=== PATIENT | female | born 1960 | race Caucasian/White ===

== ENCOUNTER 2016-05-28 11:03 | Inpatient (IN) | payer OTHER ==
[~2016-05-28] VITALS: Ht 170.2 cm; Wt 68.5 kg
[~2016-05-28 11:03] MED LIST: ASCORBIC ACID100 MG PO; CO Q-10100 MG PO; GLUCOSAMINE 1,1 EAC1 PO; MELATONIN1 M1 SL; MILK THISTLE500 MG PO; MOUTHSPRAY10 ML MM; OMEGA 3-6-9 CO1 EACH PO; OMEPRAZOLE40 M1 PO; ROXICODONE5 MG PO; SYNTHROID50 MCG PO; TRAMADOL HCL50 MG PO; VALTREX50 MG/ML PO; ZETIA10 MG PO; [UNRECOGNIZED DRUG - OTHER]; [UNRECOGNIZED DRUG - OTHER] PO
[2016-05-28 13:34] LABS: HEMATOCRIT 36.6 % (36.0-46.0); MCH 35.7 PG (29.0-34.0); MCHC 35.5 G/DL (30.0-36.0); MCV 100.5 FL (83-99); MEAN PLAT.VOLUME 10.4 uM^3 (9.5-12.4); PLATELET COUNT 147 K/uL (156-360); RBC DIS.WIDTH-CV 15.8 % (11.8-14.6); RBC DIS.WIDTH-SD 58.3 % (39-53); RED BLOOD COUNT 3.64 M/uL (3.80-5.20); WHITE BLOOD COUNT 11.4 K/uL (4.1-10.2)
[2016-05-28 13:45] LABS: CHLORIDE 91 mEq/L (99-109); POTASSIUM 3.5 mEq/L (3.7-5.4); SODIUM 130 mEq/L (136-147)
[2016-05-28 13:47] LABS: GLUCOSE 104 mg/dL (70-99)
[2016-05-28 13:49] LABS: ANION GAP 13 MEQ/L (2-14); TOTAL BILIRUBIN 18.5 mg/dL (0.0-1.0)
[2016-05-28 13:51] LABS: ALKALINE PHOSPHATASE 317 IU/L (3-129); GFR ESTIMATE (CALCULATED) > 59 mL/min/
[2016-05-28 13:52] LABS: UREA NITROGEN (BUN) 6 mg/dL (9-23)
[2016-05-28 13:54] LABS: LIPASE 42 U/L (1.0-51.0)
[2016-05-28 13:55] LABS: INTER. NORMALIZED RATIO 1.6; PROTHROMBIN TIME 16.2 (9.2-11.2); PTT 36.9 (25-32)
[2016-05-28 14:25] LABS: ADD MIUA? YES; BILIRUBIN MODERATE; BLOOD SMALL; COLOR AMBER ((YELLOW)); GLUCOSE (STRIP) 50; KETONES NEGATIVE; LEUKOCYTES NEGATIVE; NITRITE NEGATIVE; PROTEIN (STRIP) 30; SPECIFIC GRAVITY 1.024 (1.000-1.030)
[2016-05-28 14:44] LABS: ICTOTEST POSITIVE
[2016-05-28 15:10] LABS: BACTERIA 2+ /HPF; EPITHELIAL CELLS 1+ /HPF; HYALINE CASTS 20-30 /LPF; MUCUS 4+ /LPF; UCUL ADDED? YES; UNCLASSIFIED CRYSTALS 4+ /HPF; WHITE BLOOD CELLS CLUMP MOD /HPF (0-5)
[2016-05-28] MEDS ORDERED: CYMBALTA30 MG PO (17:07)
[2016-05-28] MEDS ORDERED: LYRICA150 MG PO (17:07)
[2016-05-28] MEDS ORDERED: DICYCLOMINE HCL10 MG PO (17:08)
[2016-05-28] MEDS ORDERED: ASCORBIC ACID500 M3 PO (17:08)
[2016-05-28] MEDS ORDERED: MELATONIN10 M4 SL (17:08)
[2016-05-28 19:00] VITALS: BP 166/77
[2016-05-28 21:20] LABS: DIRECT BILIRUBIN 11.8 mg/dL (0.0-0.3)
[2016-05-28 22:01] LABS: MAGNESIUM 1.6 mg/dL (1.3-2.7)
[2016-05-28 22:04] VITALS: BP 110/70
[2016-05-29] VITALS: BP 167/84
[2016-05-29 04:00] VITALS: BP 127/88
[2016-05-29 06:42] LABS: BASOPHIL COUNT 0.1 K/uL (0-0.1); EOSINOPHIL (%) 1.5 % (0-5); EOSINOPHIL COUNT 0.1 K/uL (0-0.3); HEMATOCRIT 31.3 % (36.0-46.0); IMMATURE GRANULOCYTE (%) 0.6 % (0.0-0.7); IMMATURE GRANULOCYTE COUNT 0.1 K/uL; INSTRUMENT ABS NEUTROPHIL CT 5.5 K/uL; LYMPHOCYTE COUNT 1.4 K/uL (1.0-2.8); MCH 35.8 PG (29.0-34.0); MCHC 35.5 G/DL (30.0-36.0); MEAN PLAT.VOLUME 10.2 uM^3 (9.5-12.4); MONOCYTE (%) 11.7 % (3-12); MONOCYTE COUNT 0.9 K/uL (0-0.8); NEUTROPHIL (%) 68.2 % (45-76); NEUTROPHIL COUNT 5.5 K/uL (1.8-6.4); PLATELET COUNT 118 K/uL (156-360); RBC DIS.WIDTH-CV 15.9 % (11.8-14.6)
[2016-05-29 07:00] VITALS: BP 103/69
[2016-05-29 07:00] LABS: ALKALINE PHOSPHATASE 242 IU/L (3-129); ANION GAP 9 MEQ/L (2-14); CHLORIDE 95 MEQ/L (99-109); GFR ESTIMATE (CALCULATED) > 59 mL/min/; GLUCOSE 94 mg/dL (70-99); POTASSIUM 2.8 MEQ/L (3.7-5.4); SAMPLE HEMOLYSIS CHECK 0; SAMPLE ICTERIC CHECK 3; SAMPLE LIPEMIA CHECK 0; SODIUM 130 MEQ/L (136-147); TOTAL BILIRUBIN 16.6 MG/DL (0.0-1.0); UREA NITROGEN (BUN) 5 mg/dL (9-23)
[2016-05-29 10:06] LABS: TYPE OF FLUID PARACENTESIS
[2016-05-29 10:53] LABS: BODY FLUID EOSINOPHILS 1 % (0-25); BODY FLUID RBC'S < 1000 /MM^3 (0-100); BODY FLUID WBC'S 82 /MM^3 (0-500); MONONUCLEAR WBC'S 89 %; POLYNUCLEAR WBC'S 10 % (0-25)
[2016-05-29 11:01] LABS: BODY FLUID PROTEIN 0.6 G/DL
[2016-05-29 11:16] LABS: COMMENT MANY MACROPHAGES AND
[2016-05-29 15:30] VITALS: BP 91/56
[2016-05-29] MEDS ORDERED: SPIRONOLACTONE50 MG PO (17:36)
[2016-05-29 22:43] VITALS: BP 94/58
[2016-05-30 08:20] VITALS: BP 98/58
[2016-05-30 09:55] LABS: BASOPHIL COUNT 0.1 K/uL (0-0.1); EOSINOPHIL COUNT 0.1 K/uL (0-0.3); IMMATURE GRANULOCYTE (%) 0.5 % (0.0-0.7); IMMATURE GRANULOCYTE COUNT 0.1 K/uL; INSTRUMENT ABS NEUTROPHIL CT 6.5 K/uL; LYMPHOCYTE COUNT 1.6 K/uL (1.0-2.8); MCH 35.6 PG (29.0-34.0); MCHC 34.3 G/DL (30.0-36.0); MCV 103.9 FL (83-99); MEAN PLAT.VOLUME 10.2 uM^3 (9.5-12.4); MONOCYTE (%) 9.4 % (3-12); MONOCYTE COUNT 0.9 K/uL (0-0.8); NEUTROPHIL (%) 71.1 % (45-76); NEUTROPHIL COUNT 6.5 K/uL (1.8-6.4); PLATELET COUNT 128 K/uL (156-360); RBC DIS.WIDTH-CV 16.5 % (11.8-14.6); RBC DIS.WIDTH-SD 62.5 % (39-53); RED BLOOD COUNT 3.37 M/uL (3.80-5.20); WHITE BLOOD COUNT 9.2 K/uL (4.1-10.2)
[2016-05-30 10:35] LABS: ALKALINE PHOSPHATASE 240 IU/L (3-129); ANION GAP 10 MEQ/L (2-14); CHLORIDE 101 MEQ/L (99-109); GFR ESTIMATE (CALCULATED) > 59 mL/min/; GLUCOSE 102 mg/dL (70-99); SAMPLE HEMOLYSIS CHECK 0; SAMPLE ICTERIC CHECK 3; SAMPLE LIPEMIA CHECK 0; SODIUM 135 MEQ/L (136-147); TOTAL BILIRUBIN 18.7 MG/DL (0.0-1.0); UREA NITROGEN (BUN) 6 mg/dL (9-23)
[2016-05-30 18:19] VITALS: BP 110/62
== END 2016-05-30 19:07 | disposition short-term general hospital (02) | DRG 433 ==
LOC: EME 11:03 → 5EAST 20:32 → EDOF 20:32 → 5EAST 21:48
PROVIDERS: Hospitalist; Physician Assistant
PROC: 0W9G3ZX Drainage of Peritoneal Cavity, Percutaneous Approach, Diagnostic (ICD-10-PCS; principal; 2016-05-29)
DX: K70.31 Alcoholic cirrhosis of liver with ascites (principal); E87.1 Hypo-osmolality and hyponatremia; J98.11 Atelectasis; K70.40 Alcoholic hepatic failure without coma; E87.6 Hypokalemia; E03.9 Hypothyroidism, unspecified; R74.0 Nonspecific elevation of levels of transaminase and lactic acid dehydrogenase [LDH]; E78.5 Hyperlipidemia, unspecified; R16.1 Splenomegaly, not elsewhere classified; F32.9 Major depressive disorder, single episode, unspecified; G89.29 Other chronic pain; F17.200 Nicotine dependence, unspecified, uncomplicated; F10.20 Alcohol dependence, uncomplicated; K70.11 Alcoholic hepatitis with ascites; D69.6 Thrombocytopenia, unspecified
CPT/HCPCS: 71020; 74177; 80053; 81003; 82140; 82248; 83690; 83735; 84157; 85025; 85027; 85610; 85730; 87070; 87086; 87205; 89051; 99281; 99285; G0480; J0696; J1650; J2270; J3411; J3480; J7030; J7050

== ENCOUNTER → 2016-07-25 | Outpatient (CLI) | payer OTHER ==
[~2016-07-25] MED LIST changes: +ASCORBIC ACID500 M3 PO; +CYMBALTA30 MG PO; +DICYCLOMINE HCL10 MG PO; +LYRICA150 MG PO; +MELATONIN10 M4 SL; +ONCE DAILY1 EACH PO; +SPIRONOLACTONE50 MG PO
== END | disposition home or self-care (01) ==
LOC: RAD 08:03
PROC: 0W9G3ZZ Drainage of Peritoneal Cavity, Percutaneous Approach (ICD-10-PCS; principal; 2016-07-25)
DX: R18.8 Other ascites (principal); K74.60 Unspecified cirrhosis of liver

== ENCOUNTER → 2016-07-25 | Outpatient (CLI) | payer OTHER | END | disposition home or self-care (01) | LOC: RAD 08:09 | DX: Z01.810 Encounter for preprocedural cardiovascular examination (principal); K70.31 Alcoholic cirrhosis of liver with ascites | CPT/HCPCS: 71020 ==

== ENCOUNTER 2017-07-25 12:35 | Emergency (ER) | payer OTHER ==
[~2017-07-25] VITALS: Ht 170.2 cm; Wt 77.6 kg
[2017-07-25 13:28] LABS: HEMATOCRIT 36.7 % (36.0-46.0); HEMOGLOBIN 12.9 G/DL (11.9-15.5); MCH 33.1 PG (29.0-34.0); MCHC 35.1 G/DL (30.0-36.0); MCV 94.1 FL (83-99); PLATELET COUNT 85 K/uL (156-360); RBC DIS.WIDTH-CV 13.6 % (11.8-14.6); RBC DIS.WIDTH-SD 46.7 % (39-53); WHITE BLOOD COUNT 12.1 K/uL (4.1-10.2)
[2017-07-25 13:37] LABS: ALBUMIN 4.1 g/dL (3.2-4.8); CHLORIDE 101 mEq/L (99-109); POTASSIUM 3.7 mEq/L (3.7-5.4); SODIUM 135 mEq/L (136-147)
[2017-07-25 13:39] LABS: GLUCOSE 117 mg/dL (70-99); TOTAL PROTEIN 7.4 g/dL (6.4-8.3)
[2017-07-25 13:41] LABS: TOTAL BILIRUBIN 3.8 mg/dL (0.0-1.0)
[2017-07-25 13:43] LABS: ALKALINE PHOSPHATASE 177 IU/L (3-129); CREATININE 0.8 mg/dL (0.6-1.3); GFR ESTIMATE (CALCULATED) > 59 mL/min/
[2017-07-25 13:44] LABS: UREA NITROGEN (BUN) 13 mg/dL (9-23)
[2017-07-25 13:45] LABS: AST (GOT) 33 IU/L (2-34)
[2017-07-25 13:46] LABS: ALT (GPT) 19 IU/L (3-49)
[2017-07-25 13:46] LABS: APPEARANCE CLEAR ((CLEAR)); BILIRUBIN NEGATIVE; BLOOD NEGATIVE; COLOR YELLOW ((YELLOW)); GLUCOSE (STRIP) NEGATIVE; KETONES NEGATIVE; LEUKOCYTES SMALL; NITRITE NEGATIVE; PROTEIN (STRIP) NEGATIVE; SPECIFIC GRAVITY 1.008 (1.000-1.030); UROBILINOGEN 0.2 MG/DL (0.2-1.0)
[2017-07-25 13:53] LABS: BACTERIA RARE /HPF; EPITHELIAL CELLS RARE /HPF; HYALINE CASTS 0-5 /LPF; MUCUS NONE SEEN /LPF; RED BLOOD CELLS 0-5 /HPF (0-5); UCUL ADDED? YES
[2017-07-25] MEDS ORDERED: FLAGYL500 MG PO (16:00)
[2017-07-25] MEDS ORDERED: OXAYDO5 MG PO (16:00)
[2017-07-25] MEDS ORDERED: CIPRO500 MG PO (16:00)
[2017-07-25 16:14] VITALS: BP 131/82
== END 2017-07-25 16:16 | disposition home or self-care (01) ==
LOC: EME 12:35
DX: K52.9 Noninfective gastroenteritis and colitis, unspecified (principal); K74.60 Unspecified cirrhosis of liver; K80.20 Calculus of gallbladder without cholecystitis without obstruction; R94.8 Abnormal results of function studies of other organs and systems; Z76.82 Awaiting organ transplant status; M79.7 Fibromyalgia; G89.29 Other chronic pain; M54.9 Dorsalgia, unspecified; F17.200 Nicotine dependence, unspecified, uncomplicated
CPT/HCPCS: 74177; 80053; 81003; 85027; 87077; 87086; 87186; 99281; 99285; J1885; J7040